=== PATIENT | female | born 1980 | race Asian ===

== ENCOUNTER → 2024-09-26 | Outpatient (CLI) | payer OTHER, SELFPAY ==
[2024-09-26 09:26] LABS: Misc Send Out* See Sep Rpt
[2024-09-26 10:28] LABS: Basophils % (Auto) 1 % (0-2.5); Eosinophils # (Auto) 0.2 Thou/mm3 (0.0-0.5); Eosinophils % (Auto) 3 % (0-10); Hematocrit 41.8 % (36.0-46.0); Hemoglobin 14.2 g/dL (12.0-16.0); Immature Granulocytes % (Auto) 0 % (0-0); Immature Granulocytes Auto 0.02 Thou/mm3 (0.00-0.00); Immature Reticulocyte Fraction 4.1 % (3.0-15.9); Lymphocytes % (Auto) 34 % (10-50); Mean Corpuscular Hemoglobin 27.7 pg (25.0-35.0); Mean Corpuscular Volume 82 fL (80-100); Monocytes # (Auto) 0.4 Thou/mm3 (0.0-0.8); Monocytes % (Auto) 7 % (0-12); Neutrophils # (Auto) 3.3 Thou/mm3 (1.8-7.7); Neutrophils % (Auto) 55 % (37-80); Nucleated Red Blood Cell % 0 /100 WBC (0); Platelet Count 262 Thou/mm3 (140-440); RDW Standard Deviation 40.7 fL (36.4-46.3); Red Blood Count 5.12 Miln/mm3 (4.00-5.20); Reticulocyte % (Auto) 0.9 % (0.5-1.5); Reticulocyte Absolute Auto 45.1 Biln/L (25.0-75.0); Reticulocyte Hgb Content 33.3 pg (28.0-35.0)
[2024-09-26 10:38] LABS: Glucose Estimated Average 108 mg/dL (80-131); Hemoglobin A1C 5.4 % Hgb (4.8-6.0)
[2024-09-26 10:44] LABS: Follicle Stimulating Hormone 2.99 mIU/mL (See Note)
[2024-09-26 10:55] LABS: Ferritin 16 ng/mL (7.3-270.7); Iron 122 mcg/dL (50-170); Percent Iron Saturation 30 % (20-55); T4 (Thyroxine) 8.7 mcg/dL (4.5-10.9); Total Iron Binding Capacity 404 mcg/dL (250-425); Unsaturated Iron Binding 282 (225-295)
[2024-09-26 10:57] LABS: Alanine Aminotransferase 8 U/L (10-49); Albumin, Serum 4.6 gm/dL (3.5-5.0); Albumin/Globulin Ratio 1.4 (1.2-2.2); Alkaline Phosphatase 89 U/L (46-116); Anion Gap 11 (7-16); Aspartate Amino Transferase < 8 U/L (0-34); BUN/Creatinine Ratio 15 Ratio (12-20); Bilirubin,Total 0.8 mg/dL (0.3-1.2); Blood Urea Nitrogen 15 mg/dL (9-23); Calcium 9.5 mg/dL (8.3-10.6); Calcium (Corrected) 9.5 mg/dL (8.5-10.1); Carbon Dioxide 24.4 mMol/L (20.0-31.0); Cardiac Risk Estimate 3.6 RATIO (3.7-5.6); Chloride 102 mMol/L (98-107); Cholesterol 210 mg/dL (132-200); Globulin 3.2 gm/dL (2.3-3.5); Glucose 87 mg/dL (74-106); HDL Cholesterol 58 mg/dL (40-60); LDL Cholesterol,Calculated 136 mg/dL (0-130); Osmolality,Calculated 273 (275-295); Potassium 3.5 mMol/L (3.4-5.1); Sodium 137 mMol/L (136-145); Total Protein 7.8 gm/dL (5.7-8.2); Triglycerides 81 mg/dL (30-150); eGFR > 60 See Note
[2024-09-26 10:58] LABS: Creatinine MALB Rnd Ur 162 mg/dL (30-125); Microalbumin, Random Urine < 3 mg/L (0-300)
[2024-10-09 06:50] LABS: ANA Screen, IFA NEGATIVE (NEGATIVE); DHEA Sulfate* 68 mcg/dL (19-231); Estradiol, Ultrasensitive* 115 pg/mL; Luteinizing Hormone* 2.8 mIU/mL; Progesterone,LC/MS* 10.1 ng/mL; Sex Hormone Binding Globulin* 49 nmol/L (17-124); Testosterone, Total, Dialysis 18 ng/dL (2-45)
== END | disposition home or self-care (01) ==
LOC: COPL 09:02
PROVIDERS: PCP Nurse Practitioner Family; Referring Provider Nurse Practitioner Family; Visit Provider Nurse Practitioner Family
DX: R53.82 Chronic fatigue, unspecified (principal); I10 Essential (primary) hypertension; D89.9 Disorder involving the immune mechanism, unspecified; R87.1 Abnormal level of hormones in specimens from female genital organs
CPT/HCPCS: 36415; 80053; 80061; 82043; 82570; 82627; 82670; 82728; 83001; 83002; 83036; 83540; 83550; 84144; 84270; 84402; 84403; 84436; 84443; 85025; 85046; 86038

== ENCOUNTER → 2024-09-27 | Outpatient (CLI) | payer OTHER, SELFPAY ==
[2024-10-03 06:52] LABS: Fecal Globin Result NOT DETECTED (NOT DETECTED)
== END | disposition home or self-care (01) ==
LOC: SLDO 14:57
PROVIDERS: PCP Nurse Practitioner Family; Referring Provider Nurse Practitioner Family; Visit Provider Nurse Practitioner Family
DX: Z12.11 Encounter for screening for malignant neoplasm of colon (principal)
CPT/HCPCS: 82274; G0328

== ENCOUNTER 2024-10-21 09:40 | Outpatient (AMB) | payer OTHER, SELFPAY ==
[2024-10-21 09:52] VITALS: BP 158/93; PULSE 77; RESP 16; TEMP 36.2; O2SAT 98
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
== END 2024-10-21 10:22 | disposition home or self-care (01) ==
LOC: HODSOBC 09:40
PROVIDERS: PCP Nurse Practitioner Family; Referring Provider Nurse Practitioner Family; Supervising Provider Obstetrics & Gynecology; Visit Provider Obstetrics & Gynecology
DX: D25.1 Intramural leiomyoma of uterus (principal)
CPT/HCPCS: 99213; G0463

== ENCOUNTER → 2024-10-24 | Outpatient (CLI) | payer OTHER, SELFPAY ==
--- NOTE | 2024-10-24 13:30 | XR_ITS ---
Examination: Transvaginal ultrasound of the pelvis, complete Technique: Transvaginal sonographic images pelvis performed using gordillo scale imaging Exam date and time: October 24, 2024 at 1330 hours INDICATIONS: Uterine fibroids masses diagnosed 2 years ago FINDINGS: Uterus 9.0 cm endometrial stripe 1.9 cm Posterior uterine body fibroid degeneration 3.6 cm subserosal mass 2.1 cm Right ovary 2.6 cm arterial flow, 6.7 cm simple cyst Left ovary obscured by bowel gas, cystic mass 3.5 cm IMPRESSION: Uterine areas of fibroid degeneration, recommend 6 month follow-up transvaginal pelvic sonography Bilateral ovarian cysts
--- NOTE | 2024-10-24 13:30 | XR_ITS ---
Examination: Pelvic ultrasound, transabdominal, complete Technique: Transabdominal ultrasound of the pelvis performed using grayscale imaging Date and time of exam: October 24, 2024 1316 hours INDICATIONS: Vaginal bleeding beginning 2 years ago FINDINGS: Uterus 8.0 cm endometrial stripe 1.3 cm Posterior uterine body mass 3.4 cm subserosal mass 3.0 cm Right ovary 3.2 cm arterial flow 6.5 x 2.5 cm cyst Left ovary 3.8 cm arterial flow, cyst versus dilated fallopian tube 5.6 x 3.9 cm IMPRESSION: Uterine areas of fibroid degeneration Right ovarian cyst 6.5 x 2.5 x 2.5 cm Left ovarian cyst versus dilated fallopian tube 5.6 x 3.1 x 3.9 cm
== END | disposition home or self-care (01) ==
PROVIDERS: PCP Obstetrics & Gynecology; Referring Provider Obstetrics & Gynecology; Visit Provider Obstetrics & Gynecology
DX: D25.9 Leiomyoma of uterus, unspecified (principal); N83.201 Unspecified ovarian cyst, right side; N83.202 Unspecified ovarian cyst, left side
CPT/HCPCS: 76830; 76856

== ENCOUNTER 2024-11-05 13:02 | Outpatient (AMB) | payer OTHER, SELFPAY ==
[2024-11-05 13:18] VITALS: BP 165/96; PULSE 82; RESP 16; TEMP 35.7; O2SAT 99
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
== END 2024-11-05 13:30 | disposition home or self-care (01) ==
LOC: HODSOBC 13:02
PROVIDERS: PCP Obstetrics & Gynecology; Referring Provider Obstetrics & Gynecology; Supervising Provider Obstetrics & Gynecology; Visit Provider Obstetrics & Gynecology
DX: Z31.41 Encounter for fertility testing (principal); N97.0 Female infertility associated with anovulation; D25.0 Submucous leiomyoma of uterus; N83.202 Unspecified ovarian cyst, left side; N83.201 Unspecified ovarian cyst, right side
CPT/HCPCS: 99213; G0463

== ENCOUNTER 2025-01-21 19:06 | Emergency (ER) | payer OTHER, SELFPAY ==
[2025-01-21 19:07] VITALS: BMI 25.4
[2025-01-21 20:54] VITALS: BP 115/75; PULSE 72; RESP 16; TEMP 37.3; O2SAT 100
--- NOTE | 2025-01-21 21:05 | XR_ITS ---
Examination: Knee, with , 3 views Technique: Knee AP, lateral, oblique 3 views Date and time of exam: January 21, 2025 2108 hours INDICATIONS: Patient fell last week with injury to the knee, knee pain FINDINGS: No fracture or dislocation No foreign body IMPRESSION: No fracture or dislocation
--- NOTE | 2025-01-21 21:16 | EDNOTE_ITS ---
Lower Extremity Injury RME/HPI General Chief Complaint: Fall Stated Complaint: RIGHT KNEE INJURY Time Seen by Provider: 01/21/25 21:05 Arrival date/time: 01/21/25 19:06 44F with history of HTN presents to ED with R knee pain/swelling after she tripped and fell 2 days ago. Patient has not had a tetanus shot in the past 5 years. Limitations: no limitations Related Data Home Medications ?Medication ?Instructions ?Recorded ?Confirmed No Known Home Medications 10/21/24 04/0 08/31 Allergies Allergy/AdvReac Type Severity Reaction Status Date / Time No Known Allergies Allergy Verified 01/21/25 19:09 Review of Systems Review of Systems Systems Reviewed: All systems reviewed, normal except as documented Constitutional Constitutional: Reports system reviewed and no additional complaints, except as documented, Denies fever(s) and Denies headache(s) ENT Ears, Nose, Mouth, and Throat: Denies disequilibrium and Denies headache(s) Cardiovascular Cardiovascular: Reports system reviewed and no additional complaints, except as documented, Denies chest pain and Denies dyspnea Respiratory Respiratory: Reports system reviewed and no additional complaints, except as documented, Denies cough and Denies dyspnea Gastrointestinal Gastrointestinal: Reports system reviewed and no additional complaints, except as documented, Denies abdominal pain, Denies nausea and Denies vomiting Musculoskeletal Musculoskeletal: Reports as per HPI and Reports arthralgias Neurologic Neurologic: Reports system reviewed and no additional complaints, except as documented, Denies confusion, Denies disequilibrium and Denies headache(s) Psychiatric Psychiatric: Denies confusion Past Medical History Social History SMOKING STATUS: Never smoker ED Exam General Limitations: Present no limitations General appearance: Present alert and in no apparent distress Head Head exam: Present atraumatic Eye Eye exam: Present normal appearance, PERRL and EOMI ENT ENT exam: Present normal exam, normal oropharynx and mucous membranes moist Neck Neck exam: Present normal inspection, full ROM and trachea midline Chest Chest inspection: Present normal inspection and symmetric chest wall rise Respiratory Respiratory exam: Present normal lung sounds bilaterally Cardiovascular Cardiovascular exam: Present regular rate, normal rhythm and normal heart sounds Abdominal Exam Abdominal exam: Present soft and normal bowel sounds Extremities Exam Extremities exam: Present full ROM Expanded Lower Extremity Exam Lower leg exam: Present full ROM (R), tenderness, swelling and ecchymosis Back Exam Back exam: Present normal inspection and full ROM Neurological Exam Neurological exam: Present alert, oriented X3 and CN II-XII intact Psychiatric Psychiatric exam: Present normal affect and normal mood Skin Skin exam: Present warm, dry, intact and normal color Course Quality Measures none Orders Category Date Time Status annie wrap [Splint / Immobilizer] STAT Care 01/21/25 21:36 Active XR knee RT 3V Stat Exams 01/21/25 21:05 Completed TET,DIP/PERT AC (Adult)-Tdap [Boostrix Adult (Tdap) Med 01/21/25 21:05 Discontinued Vacc] 0.5 ml IMI .ONCE ONE Vital Signs Vital signs: Vital Signs Temperature 99.1 F 01/21/25 20:54 Pulse Rate 72 01/21/25 20:54 Respiratory Rate 16 01/21/25 20:54 Blood Pressure 115/75 01/21/25 20:54 Pulse Oximetry (%) 100 01/21/25 20:54 Oxygen Delivery Method Room Air 01/21/25 20:54 O2 at 100% on RA and WNLs Extremity Injury, Lower MDM Narrative MDM Narrative:: 44F with history of HTN presents to ED with R knee pain/swelling after she tripped and fell 2 days ago. Patient has not had a tetanus shot in the past 5 years. Physical exam reveals R knee swelling, bruising, and tenderness. ROM intact. Gait intact. Patient is afebrile, calm, and alert. XR no fx. Given tdap, ANNIE, and dependency counselor. Patient data External records reviewed:: [facility] previous records Clinical information provided by:: patient Social determinants that could affect healthcare access:: none Patient has the following chronic illnesses:: HTN How is presenting disease/condition affected by chronic disease/condition?: uneffected by Evaluation data The following diagnostics were reviewed and interpreted by me:: radiology exam(s) Lab and/or radiology exams considered but not ordered:: ordered Interpretation Summary: above Medications / Prescriptions Medications or Prescriptions considered but not ordered:: ordered Medication administrations:: Medication Administration History Discontinued Medications Diphtheria/Tetanus/Acell Pertussis (Diphth,Pertuss(Acell),Tet Vac 0.5 Ml Syr- Adult) 0.5 ml IMi .ONCE ONE Stop: 01/21/25 21:06 above Consultations Consultation(s) initiated? (list below): No Diagnosis Extremity Injury, Lower Differential Diagnosis: ankle sprain and strain, acute internal derangement of knee, fracture of femur, fracture of hip, puncture wound of foot, fracture of toe, ankle fracture and other (knee contusion and skin abrasion) Most likely diagnosis given after review of the tests above:: knee contusion and skin abrasion Admission Indicated Admission indicated?: not indicated Admission Request Was there a request for admission?: No Disposition Plan Disposition Plan: Discharge Discharge Attestation Discharge Attestation: The patient and all family members were given an opportunity to ask questions and understood the discharge instructions. Discharge instructions specifically effects, indications for sooner follow up or return to the emergency department, and the expected course of current diagnosis. Patient condition: Stable Discharge Plan Plan Patient Disposition: HOME (Self Care) Discharge Disposition comment: Stable Prescriptions/Referrals Prescriptions/Med Rec: No Action No Known Home Medications Referrals: Jaun Tirado FNP [Primary Care Provider] - In 1 week Problem List Clinical Impression: Contusion of knee, Abrasion of skin Patient/Caregiver Discharge Instructions Education Materials: ED Contusion, Lower Extremity Additional Instructions: Please follow-up with PCP within 24-48 hours and return immediately if symptoms worsen. If problem persists, recommend outpatient PT and/or MRI follow-up. In the meantime, rest, use ice/heat, and/or compression. Print Language: Greek Stand Alone Forms: Patient Portal Info Letter ANGEL/HUGH Supervising Physician GORDY Supervising Physician: Dr. Soriano
[2025-01-21] MEDS: DIPHTH,PERTUSS(ACELL),TET VAC 0.5 ML SYR- ADULT IMi (21:52)
== END 2025-01-21 22:02 | disposition home or self-care (01) ==
PROVIDERS: Emergency Provider Emergency Medicine; PCP Nurse Practitioner Family
DX: S80.01XA Contusion of right knee, initial encounter (principal); S80.211A Abrasion, right knee, initial encounter; W01.0XXA Fall on same level from slipping, tripping and stumbling without subsequent striking against object, initial encounter; Z23 Encounter for immunization; I10 Essential (primary) hypertension
CPT/HCPCS: 73562; 90471; 90715; 99283

== ENCOUNTER → 2025-02-26 | Outpatient (CLI) | payer OTHER, SELFPAY ==
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
== END | disposition home or self-care (01) ==
LOC: SMRI 09:31
PROVIDERS: PCP Nurse Practitioner Family; Referring Provider Nurse Practitioner Family; Visit Provider Nurse Practitioner Family
DX: S83.511A Sprain of anterior cruciate ligament of right knee, initial encounter (principal); S83.194A Other dislocation of right knee, initial encounter; W19.XXXA Unspecified fall, initial encounter
CPT/HCPCS: 73721